=== PATIENT | male | born 1985 | race Caucasian/White ===

== ENCOUNTER 2025-05-10 09:36 | Emergency (ER) | payer OTHER, SELFPAY ==
[2025-05-10 09:37] VITALS: BP 138/94
--- NOTE | 2025-05-10 10:17 | EDRN ---
Jane Palomo DIVING INSTRUCTOR in room w/ pt at this time.
--- NOTE | 2025-05-10 10:26 | ED.GENMED ---
History of Present Illness
General
Chief Complaint: Musculo-Skeletal Complaint
Source: patient
Exam Limitations: none
Time Seen by Provider: 05/10/25 09:43
Nursing documentation reviewed up to this point in time: agreed with
History of Present Illness
History of Present Illness:
Patient is a 39 yr old male who presents to the ER for evaluation. Several weeks ago he coughed and had sudden left rib pain. Pain was starting to improve. Last week he went to urgent care and x-rays were negative however this morning he
sneezed and felt now increasing pain in the left lateral ribs. Pain is worse than the original pain several weeks ago. He complains of pain worse with taking a deep breath moving twisting turning. He has not taken anything for pain today. He
denies any actual shortness of breath. He denies any abdominal pain nausea vomiting
Past History
Past History
ED Past Medical History: None
ED Past Surgical History: Orthopedic (Right ankle surgery, left ACL repair, rotator cuff repair)
Social History
Tobacco: Smoker
Alcohol: Occasional
Drug: None
Living: with family
Employment: Employed
Phy Exam
General Physical Exam
General Presentation: no apparent distress
General age: appears stated age
General Skin: warm and dry
General Habitus: normal
General Mental: alert
General Hydration: appears well hydrated
Pulmonary Exam
Pulmonary Exam: no respiratory distress and other (normal inspection to left chest wall no crepitus or ecchymosis mild minimal left lower rib tenderness)
Neurological Exam
Neurological Exam: alert and oriented x3
Musculoskeletal Exam
Musculoskeletal Exam: full ROM
Skin Exam
Skin Exam: normal color and warm/dry
Psychiatric Exam
Psychiatric Exam: normal mood/affect
Course
Orders/Labs/Results
Orders:
Orders
05/10/25 10:19
Ribs, Left 3 View W/PA Chest CR [CR Ribs-left 3 Vw W/pa Chest] Urgent
Comment:
Reason For Exam: trauma
05/10/25 10:24
Acetaminophen [Tylenol] 1,000 mg PO NOW STA
Ketorolac [Toradol] 30 mg IM NOW STA
Lidocaine [Lidocaine 4% Patch] 1 patch TOPICAL NOW STA
Apply Lidocaine patch(s) to:: left rib
Vital Signs
Initial and Last Documented VS:
Initial Vital Signs
Temp Pulse Resp BP Pulse Ox
97.9 F 98 16 138/94 98
05/10/25 09:37 05/10/25 09:37 05/10/25 09:37 05/10/25 09:37 05/10/25 09:37
Last Documented Vital Signs
Temp Pulse Resp BP Pulse Ox
97.9 F 66 16 146/88 99
05/10/25 09:37 05/10/25 12:21 05/10/25 12:21 05/10/25 12:21 05/10/25 12:21
MDM/Problems Addressed
Differential Diagnosis Includes:
Not limited to muscle sprain strain, rib fracture
MDM/Problems Addressed:
Symptoms are consistent with likely mild rib fracture though not visualized on x-ray versus strain sprain of muscle. Patient received Toradol here and Tylenol feeling much better along the lidocaine patch. Will DC with supportive care. Patient
feels comfortable taking Motrin Tylenol lidocaine patch sent to pharmacy. He has no acute distress well-appearing denies any shortness of breath right minimal discomfort with deep breath however much improved after medications.
Discussed deep breathing discussed return if any worsening of symptoms.
*Radiology
Radiology exam reviewed: radiology read reviewed
*Pulse Oximetry
SaO2: 98
Oxygen Mode of Delivery: Room air
Patient hypoxic: no
*Critical Care Note
Total Time (30-74mins, 75-104mins- exclusive of procedures): Not Applicable
ED Attending Note
-
Portions of this chart may have been created with voice recognition software.� Occasional wrong word or��sound alike� substitutions may have occurred due to the inherent limitations of voice recognition software.
Discharge Plan
Departure
Patient Disposition: Home (Routine Discharge)
Date of Disposition: 05/10/25
Time of Disposition: 13:03
Patient with high blood pressure during this ER visit?: Yes
Condition: Fair
Covid-19: Not Applicable
Discharge Problem:
rib pain
Prescriptions:
New
lidocaine 5 % adhesive patch,medicated
1 patch topical DAILY Qty: 15 0RF
Rx Instructions:
Apply to affected area daily remove after 12 hours
No Action
Albuterol Sulfate Hfa
2 puff inhalation Q4H
prednisone 50 MG tablet
50 mg PO DAILY Qty: 5 0RF
albuterol sulfate [Albuterol Sulfate HFA] 18 GM HFA aerosol inhaler
18 gm inhalation Q4 Qty: 1 0RF
Referrals:
Rashaun Watson DO [Family Provider, Family Practice]
Activity Restrictions/Additional Instructions:
You were seen here today for left-sided rib pain
it is likely that you may have a rib fracture versus muscle sprain strain. X-rays are negative however as discussed it is sometimes difficult to see a rib fracture. This may also be a component of muscular pain.
Please alternate between ibuprofen 600 mg every 8 hours with food and Tylenol. Closely follow-up with your family doctor in the next several days. You may also use lidocaine patches to the area which I will send to the pharmacy. Please do deep
breathing exercises. Return if any worsening of symptoms
Interventions
Interventions:
*Risk Screen - Suicide Last Done: 05/10/25 09:38
*General Assessment Last Done: 05/10/25 10:30
*Neglect/Abuse Screening Last Done: 05/10/25 09:38
*ED- Fall Risk Assessment Last Done: 05/10/25 10:30
*ED COVID-19 Vaccine History Last Done: 05/10/25 10:30
*Nursing Disposition Last Done: 05/10/25 13:15
ED-Musculoskeletal Assessment Last Done: 05/10/25 10:49
Discharge Date and Time
Discharge Date/Time: 05/10/25 13:16
Print Language: SINHALA
[2025-05-10 10:29] VITALS: BMI 31.3
[2025-05-10 10:32] VITALS: BP 131/92
[2025-05-10] MEDS: TYLENOL 1000 MG PO (10:40)
[2025-05-10] MEDS: TORADOL 30 MG IM (10:40)
[2025-05-10] MEDS: LIDOCAINE 4% PATCH 1 PATCH TOPICAL (10:41)
[2025-05-10 12:21] VITALS: BP 146/88
--- NOTE | 2025-05-10 12:35 | EDRN ---
Jane Palomo [employer] SALESPERSON in room w/ pt at this time.
== END 2025-05-10 13:16 | disposition home or self-care (01) ==
LOC: EMR 09:36
PROVIDERS: EMERGENCY PHYSICIAN Emergency Medicine; FAMILY PHYSICIAN Family Medicine
DX: R07.81 Pleurodynia (principal); F17.200 Nicotine dependence, unspecified, uncomplicated
CPT/HCPCS: 96372; 99284; 71101

== ENCOUNTER 2025-05-12 02:27 | Emergency (ER) | payer OTHER, SELFPAY ==
[2025-05-12 02:30] VITALS: BP 144/102
[2025-05-12 03:16] VITALS: BP 133/87; BMI 32.0
[2025-05-12 03:53] LABS: Hematocrit 42.1 % (39.0-52.0); Hemoglobin 14.5 g/dL (13.0-18.0); Mean Corp Hgb Conc. 34.4 g/dL (33.0-37.0); Mean Corpuscular Volume 90.0 fL (80.0-94.0); Nucleated Red Blood Cells % 0 % (-); Platelet Count 218 10^3/uL (130-400); Red Cell Dist. Width 13.5 % (11.5-14.5)
[2025-05-12] MEDS: TORADOL 15 MG IV (04:02)
[2025-05-12 04:03] LABS: ALT (SGPT) 72 U/L (0-50); AST (SGOT) 77 U/L (17-59); Albumin 4.3 g/dl (3.5-5.0); Alkaline Phosphatase 74 U/L (38-126); Blood Urea Nitrogen 15 mg/dl (9-20); Calcium 8.7 mg/dl (8.4-10.2); Carbon Dioxide 24 mmol/L (22-30); Chloride 108 mmol/L (98-107); Estimated Creatinine Clearance > 125 ml/min; Glucose 94 mg/dl (70-99); Potassium 3.9 mmol/L (3.5-5.1); Sodium 142 mmol/L (135-145); Total Protein 7.1 g/dl (6.3-8.2); eGFR > 60.00
[2025-05-12 04:13] LABS: Troponin I < 0.012 ng/ml
[2025-05-12 04:16] VITALS: BP 157/109
--- NOTE | 2025-05-12 04:32 | ED.GENMED ---
History of Present Illness
General
Chief Complaint: Extremity Pain (non-traumatic)
Source: patient
Exam Limitations: none
Time Seen by Provider: 05/12/25 03:06
Nursing documentation reviewed up to this point in time: agreed with
History of Present Illness
History of Present Illness:
39-year-old male presenting to the emergency department today with concerns of discomfort to his left shoulder rating to the left upper chest. Was here yesterday for left rib pain that seem to occur after coughing which was treated with lidocaine
patch. Denies any significant shortness of breath no recent trauma surgery immobilization, no history of blood clots or leg swelling.
Past History
Past History
ED Past Medical History: None
ED Past Surgical History: Orthopedic (Right ankle surgery, left ACL repair, rotator cuff repair)
Social History
Tobacco: Smoker
Alcohol: Occasional
Drug: None
Living: with family
Employment: Employed
Review of Systems
Review of Systems
Allergies reviewed?: Yes
All Other Systems: ROS reviewed and negative except as documented in HPI and ROS
Phy Exam
Physical Exam
Physical Exam:
GENERAL: Alert , in no apparent distress
EYE: pupils equal and reactive
NECK: Supple, no significant adenopathy.
ENT: o/p clr, mmm.
CARDIAC: Regular rate and rhythm .
LUNGS: Clear breath sounds bilaterally, no acute respiratory distress, no wheezes/rales/rhonchi
ABDOMEN: Soft, without focal tenderness, no r/g, no cvat
NEUROLOGICAL: Alert and oriented, no focal neuro deficits
SKIN: Warm and dry, skin intact.
MUSCULOSKELETAL: Pain made worse to the left shoulder with movement of the left arm. Also worsened with changes in positioning.
PSYCH: Normal and appropriate interaction.
Course
Orders/Labs/Results
Orders:
Orders
05/12/25 02:32
ECG [Electrocardiogram (*1)] Urgent
Reason for Study: Other
Other Reason for Exam: LEFT ARM/NECK PAIN
05/12/25 02:33
EKG- Treatment ONCE
05/12/25 03:40
CMP [Comprehensive Metabolic Panel] Urgent
Complete Blood Count/With Diff Urgent
Troponin I Urgent
05/12/25 04:00
Ketorolac [Toradol] 15 mg IV NOW STA
Chest [CR Chest - 2 Views ] Urgent
Comment:
Reason For Exam: left sided chest pain
05/12/25 05:06
Dexamethasone [Decadron] 10 mg PO NOW STA
Doxycycline [Vibramycin] 100 mg PO NOW STA
Abnormal Lab Results
05/12/25
03:40
WBC 4.6 L 10^3/uL
(4.8-10.8)
RBC 4.68 L 10^6/uL
(4.70-6.10)
Absolute Monos (auto) 0.7 H 10^3/uL
(0.1-0.6)
Monocytes % 15.4 H %
(1.7-9.3)
Chloride 108 H mmol/L
(98-107)
AST 77 H U/L
(17-59)
ALT 72 H U/L
(0-50)
05/12/25 03:40
05/12/25 03:40
Vital Signs
Initial and Last Documented VS:
Initial Vital Signs
Temp Pulse Resp BP Pulse Ox
98 F 86 20 144/102 98
05/12/25 02:30 05/12/25 02:30 05/12/25 02:30 05/12/25 02:30 05/12/25 02:30
Last Documented Vital Signs
Temp Pulse Resp BP Pulse Ox
98 F 84 14 133/87 98
05/12/25 02:30 05/12/25 03:30 05/12/25 03:30 05/12/25 03:16 05/12/25 04:34
MDM/Problems Addressed
MDM/Problems Addressed:
39-year-old male presenting to the emergency department today with concerns of left-sided neck discomfort with movement. Had left-sided rib pain yesterday which she was treated with pain patch. Blood pressure slightly elevated otherwise vital
signs normal on arrival. EKG normal labs unremarkable troponin negative chest x-ray with possible small consolidation of the left lower lung which does correlate with an adventitious lung sound when reassessing the left lower lung field.
Considering this patient was started on doxycycline also given steroid but otherwise stable for discharge with no otherwise emergent findings. Return precautions given.
*Pulse Oximetry
SaO2: 98
Oxygen Mode of Delivery: Room air
Patient hypoxic: no (98)
*Critical Care Note
Total Time (30-74mins, 75-104mins- exclusive of procedures): Not Applicable
ED Attending Note
-
Portions of this chart may have been created with voice recognition software.� Occasional wrong word or��sound alike� substitutions may have occurred due to the inherent limitations of voice recognition software.
Discharge Plan
Departure
Patient Disposition: Home (Routine Discharge)
Date of Disposition: 05/12/25
Time of Disposition: 05:13
Patient with high blood pressure during this ER visit?: No
Condition: Good
Covid-19: Not Applicable
Discharge Problem:
Pneumonia
Instructions: Pneumonia in adults - Discharge instructions
Prescriptions:
New
doxycycline hyclate 100 mg tablet
100 mg PO BID 7 Days Qty: 14 0RF
No Action
Albuterol Sulfate Hfa
2 puff inhalation Q4H
prednisone 50 MG tablet
50 mg PO DAILY Qty: 5 0RF
albuterol sulfate [Albuterol Sulfate HFA] 18 GM HFA aerosol inhaler
18 gm inhalation Q4 Qty: 1 0RF
lidocaine 5 % adhesive patch,medicated
1 patch topical DAILY Qty: 15 0RF
Rx Instructions:
Apply to affected area daily remove after 12 hours
Referrals:
UNKNOWN - PT DOES,NOT KNOW [Family Provider]
Activity Restrictions/Additional Instructions:
You came to the emergency department today with concerns of ongoing left-sided pain. Here you are found to have a potential pneumonia. Please take the prescribed antibiotic and follow-up closely with the primary care doctor. Return for any
worsening, new or concerning symptoms.
Interventions
Interventions:
*Risk Screen - Suicide Last Done: 05/12/25 02:30
*General Assessment Last Done: 05/12/25 03:09
*Neglect/Abuse Screening Last Done: 05/12/25 02:30
*ED- Fall Risk Assessment Last Done: 05/12/25 03:09
*ED COVID-19 Vaccine History Last Done: 05/12/25 03:09
ED-Skin Assessment Last Done: 05/12/25 03:15
ED-Peripheral Vascular Assessment Last Done: 05/12/25 03:15
ED-Musculoskeletal Assessment Last Done: 05/12/25 03:10
Discharge Date and Time
Print Language: EGYPTIAN
[2025-05-12 05:00] VITALS: BP 174/108
[2025-05-12] MEDS: VIBRAMYCIN 100 MG PO (05:11)
[2025-05-12] MEDS: DECADRON 10 MG PO (05:11)
== END 2025-05-12 05:17 | disposition home or self-care (01) ==
LOC: EMR 02:27
PROVIDERS: Physician Assistant; EMERGENCY PHYSICIAN Emergency Medicine
DX: J18.9 Pneumonia, unspecified organism (principal); F17.200 Nicotine dependence, unspecified, uncomplicated
CPT/HCPCS: 99285; 96374; 71046; 80053; 84484; 85025; 93005